=== PATIENT | female | born 1945 | race Asian ===

== ENCOUNTER 2017-02-24 11:25 | Outpatient (CLI) | payer OTHER | END 2017-02-24 17:10 | disposition home or self-care (01) | LOC: SMA 11:25 | PROVIDERS: ATTEND Internal Medicine | DX: Z12.31 Encounter for screening mammogram for malignant neoplasm of breast (principal) | CPT/HCPCS: G0202 ==

== ENCOUNTER 2018-05-10 09:35 | Outpatient (CLI) | payer OTHER | END 2018-05-10 18:40 | disposition home or self-care (01) | LOC: SMA 09:35 | PROVIDERS: ATTEND Family Medicine | DX: Z12.31 Encounter for screening mammogram for malignant neoplasm of breast (principal) | CPT/HCPCS: 77067 ==